=== PATIENT | female | born 1990 | race Caucasian/White ===

== ENCOUNTER 2021-03-29 08:42 | Emergency (ER) | payer MEDICAID ==
[~2021-03-29] VITALS: Ht 172.7 cm; Wt 72.6 kg
[2021-03-29 09:03] VITALS: BP_SYST 103
--- NOTE | 2021-03-29 09:08 | NUR ---
Patient to ER bed 5 to gown for evaluation. Side rails up. Report given to Girish JOSEPH.
--- NOTE | 2021-03-29 09:10 | NUR ---
ER at bedside examining patient.
--- NOTE | 2021-03-29 09:15 | NUR ---
PT PRES[facility] TO ED FOR [facility].PT HAS NOACUTE DISTRESS NOTED STEADY GAIT AND DENIES KO.PT HAS MILD C/O PAIN.
[2021-03-29] MEDS ORDERED: IBUP-1969 PO (09:21)
[2021-03-29 09:30] VITALS: BP_SYST 103
--- NOTE | 2021-03-29 09:30 | NUR ---
Patient given written and verbal discharge instructions and verbalizes understanding. ER MD discussed with patient the results and treatment provided. Patient in stable condition. ID arm band removed. Rx of MOTRIN given. Patient educated on pain management and to follow up with PMD. Pain Scale 2. Opportunity for questions provided and answered. Medication side effect fact sheet provided.
== END 2021-03-29 09:30 | disposition home or self-care (01) ==
LOC: SED 08:42
DX: S30.0XXA Contusion of lower back and pelvis, initial encounter (principal); Z79.899 Other long term (current) drug therapy; W01.0XXA Fall on same level from slipping, tripping and stumbling without subsequent striking against object, initial encounter; Y93.89 Activity, other specified; Y92.89 Other specified places as the place of occurrence of the external cause; Y99.8 Other external cause status
CPT/HCPCS: 99282